=== PATIENT | male | born 1985 | race Caucasian/White ===

== ENCOUNTER 2018-12-12 22:27 | Emergency (ER) | payer SELFPAY ==
[~2018-12-12] VITALS: Ht 190.5 cm; Wt 80.0 kg
[2018-12-13] MEDS ORDERED: HYDROCODONE/ACETAMINOPHEN 5/325MG TABLET PO ONE
[2018-12-13 03:21] VITALS: BP 132/74
== END 2018-12-13 03:29 | disposition home or self-care (01) ==
LOC: ER 22:27
DX: S42.002A Fracture of unspecified part of left clavicle, initial encounter for closed fracture (principal); F12.10 Cannabis abuse, uncomplicated; F17.200 Nicotine dependence, unspecified, uncomplicated; W18.39XA Other fall on same level, initial encounter; Y93.66 Activity, soccer; Y92.322 Soccer field as the place of occurrence of the external cause; Y99.8 Other external cause status
CPT/HCPCS: 73030; 73200; 99284; A4565